=== PATIENT | female | born 1975 | race Caucasian/White ===

== ENCOUNTER → 2017-08-13 | Outpatient (CLI) | payer OTHER | LOC: BMCIMAGING 09:18 | PROVIDERS: ATTEND Physician Assistant | DX: M25.562 Pain in left knee (principal) ==

== ENCOUNTER 2018-01-08 05:59 | Day surgery (SDC) | payer OTHER ==
--- NOTE | 2018-01-06 19:20 | GHP ---
[f rep st] PREOP HISTORY AND PHYSICAL DATE OF ADMISSION: 01/08/2018 DATE OF OPERATION: 01/08/2018. PREOPERATIVE DIAGNOSES: Menorrhagia and endometrial polyp. SURGERY TO BE PERFORMED: Hysteroscopy, dilation and curettage, polypectomy with morcellator, and ins ertion of a Mirena intrauterine device. SURGEON: Dr. Krys Lunsford. HISTORY OF PRESENT ILLNESS: The patient is a 42-year-old 2, para 2-0-0-2, who presented for her annual exam complaining of heavy significant menstrual periods. She describes 3 days of her caryl od where she has to change a super tampon and a pad every 1-2 hours. She bleeds through at night, an d it is causing difficulties exercising or managing her life at all. She says that the periods have worsened over the last few years, but definitely the worse in the last 6 months. She denies dysfunct ional bleeding, no bleeding in the middle of her cycles, no postcoital bleeding, and no significant p ain with her periods. She had an evaluation for her bleeding, which included laboratory evaluation. She had a normal CBC with a hemoglobin of 13.3, hematocrit of 38.6. Other labs were normal. She valenzuela d a pelvic ultrasound which revealed a thickened endometrium which was 2.54 cm, very thick with a 24 x 18 x 23 mm hyperechoic mass seen within likely to be a large polyp and some flow within the endomet rium. Ovaries were normal. There was no fluid in the cul-de-sac. We discussed her bleeding symptoms as well as her ultrasound findings and treatment options of surgic al management with a hysteroscopy, D and C, and polypectomy plus or minus an endometrial ablation. T he patient has completed her childbearing. She is 42 years old, and they are not currently using con traception, so we talked about contraceptive options of adding a bilateral salpingectomy or tubal lig ation during her surgery. She would like to be conservative at first, and we talked about the Mirena IUD as a means of offering good contraception as well as treatment for her bleeding and hopefully pr evention of further polyp formation. She wishes to have this route instead. So she is scheduled for hysteroscopy, D and C, polypectomy with morcellator, and an insertion of a Mirena IUD. PAST OBSTETRICAL HISTORY: She had 2 normal spontaneous vaginal deliveries without complications. Diane ash has a boy who is 10 and a girl who is 7. PAST GYNECOLOGICAL HISTORY: Normal menstrual triad with menarche at age 15. Periods every 28 days. She has 7 days of heavy bleeding and no dysfunctional bleeding. No history of abnormal Paps. No hi story of any STDs. She did have a history of a clitoral abscess that was managed conservatively in 2 016. PAST MEDICAL HISTORY: She has no significant past medical history except for migraine headaches and seasonal allergies. PAST SURGICAL HISTORY: [place] tooth extraction. MEDICATIONS: Include Imitrex and Flonase p.r.n. FAMILY HISTORY: Significant for her father who has had a history of an LA and a pulmonary embolus. He is positive for factor V Leiden, and we ran a thrombophilia panel on her because of his history, a nd she is negative for all thrombophilias including Factor V Leiden. She also has a significant fami ly history of cancers. Paternal grandmother had breast and pancreatic cancer. Paternal grandfather of pancreatic cancer, and a paternal aunt had breast cancer. Maternal aunt also had breast canc er. She had a myRisk Panel done that was also negative for any genetic cancer risk. SOCIAL HISTORY: She is . She lives with her and her 2 children. 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 She denies tobacco. Has social alcohol 2-3 times a week. No drug use. Moderate exercise, running cardio, and weights, and moderate caffeine use. REVIEW OF SYSTEMS: Negative except for pertinent positives as above. OBJECTIVE: VITAL SIGNS: Today her weight is 120 pounds, blood pressure 102/56. GENERAL: She is a well-developed, thin, white female in no acute distress. LUNGS: Clear to auscultation bilaterally. HEART: Regular rate and rhythm. No murmur. ABDOMEN: Soft, nontender, nondistended. Normal bowel sounds. PELVIC: Normal external genitalia, normal parous cervix. Uterus is anteverted, anteflexed , mobile, nontender. No adnexal masses were felt. ASSESSMENT AND PLAN: 42-year-old 2, para 2-0-0-2, with menorrhagia and an ultrasound-confirm ed endometrial polyp for hysteroscopy, dilation and curettage, polypectomy today, and an insertion of a Mirena intrauterine device. I discussed the risks and benefits of the procedure with the patient. She understood the risks and benefits, the risks including bleeding, infection, damage to the uteru s including possible risk of perforation, damage to other organs if perforation were to occur, need f or additional procedures, and incomplete treatment of the bleeding. She understood these risks and b enefits, and agreed to proceed. /[id number]/MODL
[~2018-01-08 05:59] MED LIST: LIDOCAINE 1% 2 ML INJ ID PRN; LR 1,000 ML IV ONE
[2018-01-08] MEDS ORDERED: MIDAZOLAM 2 MG/2 ML VIAL IVP ONE (07:10)
--- NOTE | 2018-01-08 07:12 | PDANEPAE ---
ANE Past Medical History - Cardiovascular History Hx Hypertension: No Hx Arrhythmias: No Hx Chest Pain: No Hx Coronary Artery / Peripheral Vascular Disease: No Hx CHF / Valvular Disease: No Hx Palpitations: No - Pulmonary History Hx COPD: No Hx Asthma/Reactive Airway Disease: No Hx Recent Upper Respiratory Infection: No Hx Oxygen in Use at Home: No Hx Sleep Apnea: No Sleep Apnea Screening Result - Last Documented: Negative Pulmonary History Comment: PNEUMONIA =10YRS BERNARDO - Neurologic History Hx Cerebrovascular Accident: No Hx Seizures: No Hx Dementia: No - Endocrine History Hx Diabetes: No Endocrine History Comment: HASHIMOTOS - Renal History Hx Renal Disorders: No Renal History Comment: UTI 10/2017. INTERMITTENT LEAKAGE - Liver History Hx Hepatic Disorders: No - Neurological & Psychiatric Hx Hx Neurological and Psychiatric Disorders: No Neurological / Psychiatric History Comment: SITUATIONAL ANXIETY - Cancer History Hx Cancer: No Cancer History Comment: MELANOMA - Congenital Disorder History Hx Congenital Disorders: No - GI History GERD: no Hx Gastrointestinal Disorders: No - Other Health History Other Health History: MENORRHAGIA. UTERINE POLYP - Chronic Pain History Chronic Pain: No - Surgical History Prior Surgeries: NONE ANE Review of Systems Review of Systems: - Exercise capacity METS (RN): 4 METS ANE Patient History - Allergies Allergies/Adverse Reactions: No Known Allergies Allergy (Unverified 01/03/18 14:53) - Home Medications Home Medications: NK [No Known Home Meds] 01/03/18 [Last Taken Unknown] - NPO status NPO Since - Liquids (Date): 01/07/18 NPO Since - Liquids (Time): 20:00 NPO Since - Solids (Date): 01/07/18 NPO Since - Solids (Time): 19:00 - Anes Hx Anes Hx: no prior problems - Smoking Hx Smoking Status: Never smoked - Family Anes Hx Family Hx Anesthesia Complications: NONE ANE Labs/Vital Signs - Vital Signs Blood Pressure: 99/66 Heart Rate: 65 Respiratory Rate: 16 O2 Sat (%): 99 Height: 162.56 cm Weight: 53.524 kg ANE Physical Exam - Airway Neck exam: FROM Mallampati Score: Class 1 Mouth exam: normal dental/mouth exam - Pulmonary Pulmonary: no respiratory distress, no rales or rhonchi, clear to auscultation - Cardiovascular Cardiovascular: regular rate and rhythym, no murmur, rub, or gallop - ASA Status ASA Status: I ANE Anesthesia Plan Anesthesia Plan: GA with mask
[2018-01-08] MEDS ORDERED: PROPOFOL 200 MG/20 ML VIAL ONE (07:22)
[2018-01-08] MEDS ORDERED: fentaNYL 100 MCG/2 ML INJ ONE ×2 (07:22→08:52)
[2018-01-08] MEDS ORDERED: KETOROLAC 30 MG/1 ML SDV ONE (07:24)
[2018-01-08] MEDS ORDERED: DEXAMETHASONE 4 MG/ML VIAL ONE ×2 (07:24)
[2018-01-08] MEDS ORDERED: ONDANSETRON 4 MG/2 ML VIAL ONE (07:24)
--- NOTE | 2018-01-08 07:25 | PDHPUP ---
History & Physical Update H&P update statement: This history and physical update is based on an assessment of the patient which was completed after admission or registration (within 24 hours), but prior to the surgery/procedure. H&P update: H&P reviewed & patient examined, no change in patient's condition since H&P completed
[2018-01-08] MEDS ORDERED: ONDANSETRON 4 MG/2 ML VIAL IVP PRN (07:45)
[2018-01-08] MEDS ORDERED: MEPERIDINE 25 MG/0.5 ML AMP IVP PRN (07:45)
[2018-01-08] MEDS ORDERED: NALOXONE HCL 0.4 MG/ML INJ IVP PRN (07:45)
[2018-01-08] MEDS ORDERED: oxyCODONE IR 5 MG TAB PO PRN (07:45)
[2018-01-08] MEDS ORDERED: fentaNYL 100 MCG/2 ML INJ IVP PRN (07:45)
[2018-01-08] MEDS ORDERED: LR 500 ML IV PRN (07:45)
[2018-01-08] MEDS ORDERED: ACETAMINOPHEN 500 MG TAB PO PRN (07:45)
[2018-01-08] MEDS ORDERED: PROMETHAZINE HCL 25 MG/ML INJ IVP PRN (07:45)
[2018-01-08] MEDS ORDERED: SILVER NITRATE APPLICATOR 1 APPL TP ONE (08:11)
[2018-01-08] MEDS ORDERED: IBUPROFEN 200 MG TAB PO PRN (08:21)
[2018-01-08] MEDS ORDERED: HYDROCODONE/APAP 5/325 TAB PO PRN (08:21)
--- NOTE | 2018-01-08 08:25 | POSTOPPROG ---
Post Op Note Date of Operation: 01/08/18 Surgeon: Krys Lunsford Anesthesiologist: Dr Marcello Petit Anesthesia: GET(General Endotracheal) Pre-op Diagnosis: menorrhagia, endometrial polyp Post-op Diagnosis: same Procedure: Hysteroscopy D and C, polypectomy, insertion of Mirena IUD Findings: endometrial polyps Inf/Abcess present in the surg proc area at time of surgery?: No Depth: Organ Space EBL: Minimal Total fluids administered: 500 Complications: none Specimen(s): endometrial tissue
--- NOTE | 2018-01-08 08:38 | POSTANESTH ---
Post Anesthetic Evaluation Cardiovascular Status: Normal, Stable, Similar to Pre-Op Cond Respiratory Status: Normal, Stable, Similar to Pre-op Cond. Level of Consciousness/Mental Status: Can Participate in Eval, Moderately Sleepy Pain Control: Adequate, Prn Tx Ordered Nausea/Vomiting Control: Adequate, Prn Tx Ordered Complications Possibly Related to Anesthesia: None Noted
--- NOTE | 2018-01-08 09:10 | GOP ---
[f rep st] OPERATIVE REPORT DATE OF OPERATION: 01/08/2018 SURGEON: Krys Lunsford MD ANESTHESIA: General anesthesia. ANESTHESIOLOGIST: Marcello Petit MD. PREOPERATIVE DIAGNOSIS: Menorrhagia and endometrial polyps. POSTOPERATIVE DIAGNOSIS: Menorrhagia and endometrial polyps. PROCEDURE PERFORMED: Hysteroscopy, dilation and curettage, polypectomy with morcellator and insertio n of a Mirena intrauterine device. FINDINGS: SPECIMENS: Endometrial tissues. ESTIMATED BLOOD LOSS: For the procedure was less than 20 cc. 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 It worsened over the last few years, specifically that in the last 6 months. She julián es intermenstrual bleeding or postcoital bleeding. She had a workup including a normal CBC and a pel adriel ultrasound which revealed a thickened endometrium which was 2.54 cm, very thick with a 24 x 18 x 23 mm hyperechoic mass within the endometrium, likely large polyp with some flow in the endometrium. Ovaries were normal. We reviewed treatment options of medical management versus oral contraceptive pills versus a Mirena IUD versus a hysteroscopy, D and C, polypectomy, and then an IUD versus an endo metrial ablation. The patient chose to have a surgical management to remove the polyp, but did not w ana luisa to have an endometrial ablation. Wished to have a Mirena IUD for contraception and control of he r menstrual cycles. She was consented for the procedure. She understood the risks and benefits, the risks including bleeding, infection, damage to the uterus including possible risk of perforation, da mage to other organs or if perforation were to occur, need for additional procedures, and electrolyte imbalances. She understood these risks and benefits, agreed to proceed. DESCRIPTION OF PROCEDURE: Patient was taken to the operating room where she was placed under general anesthesia without difficulty. She was prepped and draped in the dorsal lithotomy position. Her bl adder had previously been drained. After a WHO time-out was performed, an open-sided speculum was pl aced in the vagina, and a single-tooth tenaculum was used to grasp the anterior lip of the cervix. T he uterus sounded to 10 cm. The cervix was then dilated with Myers dilators to a #7. The Truclear h ysteroscope was then gently advanced from the cervix to the fundus, and inspection of the uterine cav ity was made. There were noted to be large amounts of redundant endometrial tissue and polypoid stru ctures. No definitive polyp was seen. Both tubal ostia were visualized. The polypectomy blade was then inserted into the endometrium. A window lock was performed, and polyp ectomy and curettage were performed with the morcellator throughout the entire endometrial cavity und er good visualization without excessive bleeding, and we were able to clean up all of the redundant t issue, and view the endometrial cavity in an open way and visualize tubal ostia. The hysteroscope wa s then removed. A curettage was performed in a clockwise fashion. A gritty texture was palpated thr oughout the entire uterine endometrium, and then a Mirena IUD was inserted under sterile technique. The strings were trimmed to 2 cm. The tenaculum was removed. Small areas of bleeding were cauterize d with silver nitrate. The patient tolerated the procedure well. Sponge, lap, needle, and instrumen t counts were correct x2. Patient went to the recovery room in good condition. FLUID REPLACEMENT: 500 cc in the IV. FLUID DEFICIT: From the hysteroscope was 200 cc. /[id number]/MODL
[2018-01-08 09:38] VITALS: BP 96/65
== END 2018-01-08 09:59 | disposition home or self-care (01) ==
LOC: FSGY 05:59
PROVIDERS: ATTEND Obstetrics & Gynecology
PROC: 0UH97HZ Insertion of Contraceptive Device into Uterus, Via Natural or Artificial Opening (ICD-10-PCS; principal; 2018-01-08 07:15)
PROC: 0UDB8ZX Extraction of Endometrium, Via Natural or Artificial Opening Endoscopic, Diagnostic (ICD-10-PCS; principal; 2018-01-08 07:15)
DX: N92.0 Excessive and frequent menstruation with regular cycle (principal); N84.1 Polyp of cervix uteri
CPT/HCPCS: C1782; J1100; J1885; J2250; J2405; J2704; J3010